=== PATIENT | male | born 1960 | race Caucasian/White ===

== ENCOUNTER 2017-07-10 12:28 | Outpatient (CLI) | payer BC ==
[2017-07-10 13:13] LABS: Anion Gap 14 mmol/L (10-20); BUN (Urea Nitrogen) 15 mg/dL (8.4-25.7); Calc. Creatinine Clearance 0 mL/min (70-130); Carbon Dioxide 26 mmol/L (22-29); Chloride 99 mmol/L (98-107); Estimated GFR-MDRD Greater than 90
--- NOTE | 2017-07-10 14:41 | RAD ---
KUB: HISTORY: Renal calculi. COMPARISON: 12/25/16 study. The calcifications overlying the right and left kidneys appear stable as compared to the prior exam. IMPRESSION: Stable renal calculi. POS: OFF
== END 2017-07-10 12:29 | disposition home or self-care (01) ==
LOC: RAD 12:28
PROVIDERS: ATTEND Urology
DX: N20.0 Calculus of kidney (principal)
CPT/HCPCS: 36415; 74000; 80048

== ENCOUNTER 2017-09-08 07:51 | Outpatient (CLI) | payer BC ==
[~2017-09-08 07:51] MED LIST: Iopamidol 370 76% 100 ML VIAL ONE
[2017-09-08 09:11] LABS: Anion Gap 10 mmol/L (10-20); BUN (Urea Nitrogen) 18 mg/dL (8.4-25.7); Calc. Creatinine Clearance 0 mL/min (70-130); Calcium 9.4 mg/dL (7.8-10.44); Carbon Dioxide 27 mmol/L (22-29); Chloride 101 mmol/L (98-107); Estimated GFR-MDRD Greater than 90
--- NOTE | 2017-09-08 12:04 | CT ---
CT ABDOMEN AND PELVIS WITH AND WITHOUT IV CONTRAST: Date: 09/08/17 TECHNIQUE: Multiple axial tomograms obtained through abdomen and pelvis without IV enhancement. This is followed by post IV contrast images obtained in a portal venous phase and a delayed venous phase following ur ographic protocol. HISTORY: Follow-up bladder cancer. FINDINGS: Images through the lung bases reveal a linear soft tissue density in the right lung base measuring 1. 6 cm AP dimension in the axial plane with a length of up to 4.0 cm in the coronal plane. This is a ne w opacity in the right lung base when compared to the prior study. It linear configuration could repr esent a focal area of dense atelectasis. Other considerations such as focal consolidation or neoplasm cannot be excluded. This will need to be followed up. Review of the kidneys on the unenhanced study reveals bilateral nonobstructing renal calculi. There i s a small, linear-shaped calculus in the mid pole collecting structures of the right kidney measuring approximately 2.0 x 7.0 mm. There appear to be two small adjacent calculi in the mid pole collecting structures of the left kidney, each measuring approximately 2.0 x 6.0 mm. No evidence of ureteral calculus or ureteral obstruction. The bladder is not well distended. No evidence of mucosal mass lesion seen in the bladder on this kristyn dy. On the delayed sequence, there is minimal distention of the bladder. The bladder is filled with c ontrast on this delayed sequence and there is no evidence of mucosal mass lesion identified. Kidneys show equal function and enhancement on the postcontrast images. There is a tiny low density f ocus in the mid left kidney, too small to adequately characterized, which is stable from the prior st udy, measuring approximately 5.0 mm, possibly representing a tiny cortical cyst. Prostatic calcification is again noted, similar to the prior study. The liver, spleen, and pancreas appear unremarkable. A left adrenal myelolipoma is unchanged and has been previously described. Right adrenal is unremarka ble. Bowel loops unremarkable. Atherosclerotic changes in the aorta seen. There is mild aneurysmal dilatation of the abdominal aorta with aortic measurements recorded at up to 3.2 cm. This is stable from the prior exam. IMPRESSION: 1. There is a new density in the right lung base which has a linear configuration as described above . Close follow-up is recommended since metastatic lesion cannot be excluded. Suggest dedicated follow -up CT chest. 2. Small nonobstructing calculi in both kidneys. 3. No evidence of urinary bladder lesion, although the bladder is poorly distended. 4. Left adrenal myelolipoma is stable. 5. Mild aneurysmal dilatation of abdominal aorta is stable. POS: LUI
== END 2017-09-08 07:52 | disposition home or self-care (01) ==
LOC: CT 07:51
PROVIDERS: ATTEND Urology
DX: C67.9 Malignant neoplasm of bladder, unspecified (principal); N20.0 Calculus of kidney; D17.79 Benign lipomatous neoplasm of other sites; I71.4 Abdominal aortic aneurysm, without rupture; J98.4 Other disorders of lung
CPT/HCPCS: 36415; 74178; 80048; 85025; 85610; 85730

== ENCOUNTER 2017-09-24 07:35 | Day surgery (SDC) | payer BC ==
[2017-09-08 12:59] VITALS: BMI 34.5
[2017-09-08 14:14] LABS: #Eosinphils 0.1 thou/uL (0.0-0.7); #Lymphocytes 2.5 thou/uL (1.20-3.40); #Monocytes 0.4 thou/uL (0.11-0.59); #Neutrophils 3.6 thou/uL (1.40-6.50); %Basophils 0.7 % (0.0-1.0); %Eosinophils 1.2 % (0.0-10.0); %Lymphocytes 37.7 % (21.0-51.0); %Monocytes 6.2 % (0.0-10.0); Hematocrit 42.2 % (42.0-52.0); Mean Platelet Volume 7.9 fL (7.4-10.4); Red Blood Cell (RBC) Count 4.49 mill/uL (4.70-6.10); White Blood Cell (WBC) Count 6.7 thou/uL (4.8-10.8)
[2017-09-08 14:33] LABS: PTT 32.4 SEC (22.9-36.1); Prothrombin Time 13.6 SEC (12.0-14.7)
[2017-09-08 14:41] LABS: Anion Gap 15 mmol/L (10-20); BUN (Urea Nitrogen) 18 mg/dL (8.4-25.7); Calc. Creatinine Clearance 166 mL/min (70-130); Calcium 9.8 mg/dL (7.8-10.44); Carbon Dioxide 25 mmol/L (22-29); Chloride 103 mmol/L (98-107); Estimated GFR-MDRD Greater than 90
[2017-09-24] MEDS ORDERED: Levofloxacin 500 mg/D5W 100 ml Premix Bag ONE (08:57)
--- NOTE | 2017-09-24 09:18 | RAD ---
AP ABDOMINAL RADIOGRAPH: Date: 09-24-17 History: Bilateral renal calculi. Comparison: 04-11-16 FINDINGS: Again noted are small calcifications overlying the inferior pole of each renal shadow, again most com patible with bilateral nephrolithiasis. No additional suspicious calcifications are seen. Nonspecific bowel gas pattern is present. There are calcifications seen just above the level of the pubic symphy sis to the right of midline shown to represent calcifications seen on prior CT examination on 7. No other interval change from prior exam. IMPRESSION: Bilateral nephrolithiasis. POS: LUI
[2017-09-24] MEDS ORDERED: Iothalamate Meglumine 60% 50 ML VIAL FS ONE (10:06)
[2017-09-24] MEDS ORDERED: Fentanyl 100 MCG/2 ML VIAL ONE ×2 (10:17→12:38)
[2017-09-24] MEDS ORDERED: Phenazopyridine HCl 97.5 MG TABLET ONE ×2 (12:36)
--- NOTE | 2017-09-24 13:31 | RAD ---
FLUOROSCOPIC IVP: Twenty images submitted from fluoroscopic IVP evaluation. Indication: Renal stones and bilateral stents. FINDINGS: Total fluoroscopic time was 1 minute and 35 seconds. Total exposure was 51.9 mGy*cm^2. Submitted images of retrograde opacification of the right renal collecting system demonstrates no def inite intraluminal filling defect within the right ureter. There is subsequent placement of a wire wi thin the right renal collecting system and catheter. One of the submitted catheter images demonstrate s catheter projecting in the region of suspected right inferior pole renal calculus. Subsequent images demonstrate retrograde opacification of the left renal collecting system without vi sible filling defect. There is subsequent placement of bilateral ureteral stents. The distal aspect of the ureteral stents project in the expected position. There is a suspected image from the proximal right ureteral stent t hat projects in the expected position. No final submitted final images of the proximal aspect of the left renal collecting system. IMPRESSION: Bilateral retrograde IVP with placement of bilateral renal stents. POS: L[facility]
--- NOTE | 2017-09-24 14:49 | OP ---
DATE OF PROCEDURE: 09/24/2017 PREOPERATIVE DIAGNOSES: 1. 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 2. Recent cystoscopy negative; however, cytology positive. 3. Bilateral 6 mm nonobstructing renal calculi. 4. Left mid pole 5 mm renal cyst, too small to characterize. 5. Newly appreciated lung nodule, right lung base, 1.6 cm. POSTOPERATIVE DIAGNOSES: 1. 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 2. Recent cystoscopy negative; however, cytology positive. 3. Bilateral 6 mm nonobstructing renal calculi. 4. Left mid pole 5 mm renal cyst, too small to characterize. 5. Newly appreciated lung nodule, right lung base, 1.6 cm. PROCEDURES PERFORMED: Cystoscopy, bilateral retrograde, bilateral balloon dilatation of the distal u reter, bilateral flexible ureteroscopy, bilateral flexible pyeloscopy, bilateral laser lithotripsy of renal calculi, random bladder biopsy x3, and fulguration of biopsy site. SURGEON: Arti Sanchez D.O. ANESTHESIA: General. COMPLICATIONS: None apparent. DISPOSITION: To the recovery room in stable condition. SPECIMEN: Random bladder biopsy x3: Right posterior mid, left lateral. INTRAOPERATIVE FINDINGS: 1. Early bulbar stricture, wide caliber, now warranting treatment. 2. Bilobar hyperplasia of the prostate with high median bar, moderately obstructing prostate. 3. Bladder grossly unremarkable with no evidence of bladder lesion. 4. Bilateral retrograde pyelogram negative for filling defect. 5. Bilateral ureteroscopy, pyeloscopy negative for occult TCC lesion. 6. Nonobstructing bilateral renal calculi. INDICATIONS FOR THE PROCEDURE AND HISTORY: Mr. Irene is a 57-year-old male with history of 2.1 cm left renal pelvic stone, underwent percutaneous nephrolithotomy previously. He subsequently has fol lowed up with me, as he had microscopic hematuria, we did do a workup demonstrating positive cytology , subsequently found to have a bladder tumor, underwent transurethral resection of bladder tumor demo nstrating low grade TCC. However, given the size of the initial presenting bladder tumor, he underwe nt a course of BCG; however, due to insurance, patient is unable to continue his BCG treatment. I szymanski ve been surveying his bladder with routine cystoscopy, he has been noncompliant with followup due to financial constraints. Recent cystoscopy demonstrated no bladder lesions performed 08/14/2017. Mary rueda, due to positive cytology, advised regarding comprehensive workup with upper GI tract evaluation. I did do a restaging CT recently demonstrating no evidence of pathology lesion. Bilateral nonob structing renal lithiasis 6 mm each, 5 mm renal cyst was noted. Incidentally noted is a right lung b ase 1.6 cm density, I did have the patient obtain a CT of the chest dedicated and out of area. He wi ll be following up for a Pulmonology consult in the future which I informed the patient. Differentia l diagnoses varied from possible metastatic disease to granulomatous scarring. He presents today for exam under anesthesia and desires to proceed. Risks and complications including bleeding, pain, inf ection, injury to adjacent organs, urosepsis, possible secondary procedure was reviewed with him in d etail. All questions answered to his satisfaction and he desired to proceed. DESCRIPTION OF THE PROCEDURE: After an informed consent was signed, the patient was taken to the ope rating room, placed in a dorsal lithotomy position with the genital area prepped and draped in the [facility] surgical sterile fashion. A 21-[place] cystoscope was utilized for cystoscopy which demonstrated a wide caliber early nonobstructing bulbar stricture which did not warrant treatment. Upon further e valuation, his prostate demonstrated moderately obstructing lateral lobes with high median bar. I wa s able to enter the bladder with some maneuvering due to high median bar. The bladder was entered wh ich demonstrated no evidence of bladder lesion. A 30 and a 70-degree lens was utilized for cystoscop y. At this time, we performed bilateral retrograde pyelogram using a 5 [place] open-ended catheter. The UO's were approximately 5-6 mm proximal to the bladder neck. We performed the right side first, right retrograde pyelogram was performed with 1:1 diluted contrast which demonstrated no evidence of filling defect or prompt excretion of contrast. At this time, a 0.35 center wire was passed to the r ight upper pole and using a 10 [place] dual-lumen access sheath, a second safety wire, a 0.[address] iff was passed. With both wires remained secured, we dilated the intramural ureter using [place] [employer] nt[employer] 4 cm 12 [place] balloon dilator of the distal intramural ureter. Subsequently, I was able to p ass the flexible ureteroscope through the working wire to the level of the renal pelvis without any i ssues. I surveyed the collecting system which demonstrated no evidence of occult lesion. He does szymanski ve multiple Bigg's plaque consistent with recurrent stone former. There was a tiny linear 5-6 mm calcific density which I laser lithotripsied into tiny pieces. I surveyed the ureter, which demonstr ated no evidence of ureteral lesion, stricture or mass. We subsequently passed a 6 x 28 double-J ure teral stent to the right side and we proceeded to study the left side. With the same technique, we s urveyed the left collecting system. Flexible ureteroscope was passed to the left upper pole. He ghotra s have a larger stone burden on this side. It was located in the left lower pole. I was able to eng age the stone with a 200 micron laser fiber; however, due to the angle of the lower pole anterior jude yceal location, I was only able to laser lithotripsy half the stone which remained tethered to the re nal papilla. We attempted to basket; however, this was unsuccessful as the angle was too acute and a nterior to engage with laser or basket. I was able to make some progress in that stone; however, res idual stone nidus remains in situ as it is in approachable. I surveyed the collecting system which d emonstrated no evidence of papillary TCC occult lesion. The ureter was surveyed carefully as well wh ich demonstrated no evidence of ureteral lesion. A 6 x 28 double-J ureteral stent was then passed in to the left upper pole. All wires were removed. Proper stent placement was confirmed on fluoroscopy . At this time, we then performed a random bladder biopsy using endoscopic flexible biopsy cup. Thi s was performed randomly at the right lateral wall, mid posterior left lateral wall. Using an endosc opic [place], we cauterized the biopsy site. Good hemostasis was noted. Bladder was completely empti ed. He will follow up with me in the next 2 weeks to have his bilateral stent pull. Due to patient' s work schedule, he is not available next week, as such an appointment is provided on 10/08/2017 at 9 :15 a.m. for cysto stent pull under local in my office. He is to obtain a KUB one hour prior to appo intment. He is discharged with Cipro for 5 days, AZO p.r.n., Conrad p.r.n., [place] #[id number], Flomax prescription refill was provided.
[2017-09-24] MEDS ORDERED: ePHEDrine/0.9% NaCl/PF SYRINGE 50 mg/10 ml ONE (14:58)
[2017-09-24] MEDS ORDERED: PHENYLEPHRINE-NS 100 MCG/ML 10 ML SYRINGE ONE (14:58)
[2017-09-24] MEDS ORDERED: Propofol 200 MG/20 ML VIAL ONE (14:58)
[2017-09-24] MEDS ORDERED: Ondansetron HCl/PF 4 MG/2 ML Vial ONE (14:58)
[2017-09-24] MEDS ORDERED: Glycopyrrolate 0.2 MG/ML 5 ML SYRINGE ONE (14:58)
== END 2017-09-24 13:30 | disposition home or self-care (01) ==
LOC: SDC 07:35
PROVIDERS: ATTEND Urology
PROC: BT14ZZZ Fluoroscopy of Kidneys, Ureters and Bladder (ICD-10-PCS; principal; 2017-09-24)
PROC: 0TBB8ZX Excision of Bladder, Via Natural or Artificial Opening Endoscopic, Diagnostic (ICD-10-PCS; principal; 2017-09-24)
PROC: 0TF38ZZ Fragmentation in Right Kidney Pelvis, Via Natural or Artificial Opening Endoscopic (ICD-10-PCS; principal; 2017-09-24)
PROC: 0TCB8ZZ Extirpation of Matter from Bladder, Via Natural or Artificial Opening Endoscopic (ICD-10-PCS; principal; 2017-09-24)
PROC: 0T768DZ Dilation of Right Ureter with Intraluminal Device, Via Natural or Artificial Opening Endoscopic (ICD-10-PCS; principal; 2017-09-24)
PROC: 0TF48ZZ Fragmentation in Left Kidney Pelvis, Via Natural or Artificial Opening Endoscopic (ICD-10-PCS; principal; 2017-09-24)
DX: N30.90 Cystitis, unspecified without hematuria (principal); N20.0 Calculus of kidney; N13.5 Crossing vessel and stricture of ureter without hydronephrosis; F41.9 Anxiety disorder, unspecified; I10 Essential (primary) hypertension; E78.5 Hyperlipidemia, unspecified; I48.91 Unspecified atrial fibrillation; E11.9 Type 2 diabetes mellitus without complications; E21.4 Other specified disorders of parathyroid gland; N40.0 Benign prostatic hyperplasia without lower urinary tract symptoms; R91.1 Solitary pulmonary nodule; Z85.51 Personal history of malignant neoplasm of bladder; Z87.442 Personal history of urinary calculi; Z86.010 Personal history of colon polyps; Z87.891 Personal history of nicotine dependence; Z79.82 Long term (current) use of aspirin; Z79.84 Long term (current) use of oral hypoglycemic drugs; Z79.899 Other long term (current) drug therapy; Z98.890 Other specified postprocedural states; Z82.49 Family history of ischemic heart disease and other diseases of the circulatory system
CPT/HCPCS: 74000; 74420; 85025; 85610; 85730; 88305; 96374; C1758; C1769; J1956; J2405; J2704; J3010; Q9961

== ENCOUNTER 2017-10-02 08:41 | Outpatient (CLI) | payer BC ==
--- NOTE | 2017-10-02 10:38 | RAD ---
RADIOGRAPH ABDOMEN 1 VIEW: DATE: 10/02/17. HISTORY: 57-year-old male with calculus of kidney FINDINGS: Initial KUB, followed by multiple additional views including oblique views. What was questioned to maryann dubose a possible tiny calculus adjacent to the proximal aspect of the right ureter, is actually artifact associated with the right L3 transverse process. There are no calculi visible along the bilateral ur eters. There are bilateral nephroureteral stents. Faint small calcification is noted overlying the left renal mid pole. The upper curls of the stents overlie the upper poles of each kidney. The righ t upper curl is incompletely formed. The bilateral lower curls are at midline in the lower pelvis. IMPRESSION: 1. Bilateral ureteral stents. 2. No definite calculus visualized along the bilateral ureters. 3. Left nephrolithiasis. POS: [facility]
== END 2017-10-02 08:42 | disposition home or self-care (01) ==
LOC: RAD 08:41
PROVIDERS: ATTEND Urology
DX: N20.0 Calculus of kidney (principal); Z96.0 Presence of urogenital implants
CPT/HCPCS: 74000